=== PATIENT | male | born 1960 | race Caucasian/White ===

== ENCOUNTER 2016-05-17 17:34 | Inpatient (IN) | payer OTHER ==
[~2016-05-17] VITALS: Ht 180.3 cm; Wt 95.3 kg
--- NOTE | ~2016-05-17 | H ---
[facility] [place] [address] HISTORY AND PHYSICAL Name: CARLYNHAYDEE Nelson Room #: 418-P [facility] IN M.R.#: [id number] Admission: 05/17/16 Attend Phys: Tristan Sierra MD Discharge: 05/19/16 Date of : 64 Report #: [id number] THIS REPORT FOR: //name// CC: Jimmy Farris ATTENDING PHYSICIAN: Stacy Farris M.D. PRIMARY CARE PHYSICIAN: Jimmy Ordaz D.O. CHIEF COMPLAINT: Generalized weakness and shortness of breath. HISTORY OF PRESENT ILLNESS: The patient is a 55-year-old male who has been dealing with mid abdominal pain since February of last year. He has been seeing his primary care physician and has been set up with a different specialist to try to figure out what is going on. They initially thought it was his gallbladder, so he had a PIPIDA scan done, which he was told was negative. He then had a CT of his abdomen done in outpatient, which showed lymphadenopathy around his pancreas. He then was evaluated by surgery, Dr. Lorenz. He had a left axillary lymph node biopsy done, but the initial pathology was inconclusive; therefore, the sample was sent to [facility] where it is currently being reviewed. In the meantime, he has also had an EGD done about a week ago with at [place]. He chose to go there because he was told he needed to have this done as soon as possible, not with the only GI doctor. He could get him in not fast. He was told he had no bleeding and no ulcer is noted, but the biopsies from that are pending as well. He is getting frustrated because he has been dealing with daily chronic nausea for the last few months. His weight has gone down about 12 pounds. He has been forcing himself to eat because of this. He has been having right upper quadrant epigastric pain that is worse with eating. Overall, he has been trying to eat in very small amounts multiple times throughout the day. He does have early satiety as well as the nausea, so he is limited on how much he can eat. He has been drinking a lot of water. He denies any black or bloody stools. He did notice small amount of blood on his toilet paper a few days ago after bowel movement, but he has had none since. He reports that his hemoglobin was 8.9 two weeks ago. He does feel like the left axillary lymph node that was just biopsied, has grown in size just in the last few weeks. He came into the ER tonight mainly complaining of generalized weakness and shortness of breath, mainly with exertion. He states with minimally exertion, he has been having some heart racing. He has been overall feeling very fatigued with minimal activity. His hemoglobin today was 7.0 and he is currently receiving a blood transfusion. He denies any history of anemia or prior transfusions. PAST MEDICAL HISTORY: Hyperlipidemia; hypertension, currently off medications and nephrolithiasis. [facility] [address] [place] [address] HISTORY AND PHYSICAL Name: HAYDEE ALCOCER Room #: 418-P DIS IN M.R.#: [id number] Admission: 05/17/16 Attend Phys: Tristan Sierra MD Discharge: 05/19/16 Date of : 64 Report #: [id number] PAST SURGICAL HISTORY: Umbilical hernia repair, lithotripsy times 3 and lymph node biopsy. ALLERGIES: None. HOME MEDICATIONS: Fenofibrate 45 mg daily, simvastatin 20 mg daily, [place] 1-2 tabs q. 4 hours p.r.n., carbamazepine 100 mg daily, Zofran p.r.n., Carafate 1 g q. 4 hours and Protonix 40 mg b.i.d. SOCIAL HISTORY: The patient is a never smoker. Denies any drug use. He drinks alcohol occasionally. Denies any daily use. 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 He lives at home with his and children. Lately, he has had use a cane to ambulate. FAMILY HISTORY: His father had Hodgkin's lymphoma and was treated. He ended up dying in his 70s. His mother is alive with hypertension, hyperlipidemia and she is a 75-year-old. REVIEW OF SYSTEMS: Twelve-point review of systems was reviewed with the patient, otherwise negative unless stated in the HPI. PHYSICAL EXAMINATION: GENERAL: The patient is an alert male, in no acute distress. VITAL SIGNS: Temperature is 36.6, heart rate 84, respirations 16, blood pressure is 128/81 and oxygen 95% on room air. HEENT: PERRLA. Sclerae are nonicteric. Oral mucosa is pink and dry. NECK: Supple. No JVD noted. No cervical lymphadenopathy. CARDIAC: Normal S1 and S2. No murmurs, rubs or gallops. RESPIRATORY: Breath sounds are clear bilaterally. No wheezing or rhonchi. Breathing is nonlabored. ABDOMEN: Flat and nondistended. He does have abdominal tenderness in midepigastric and mid periumbilical area. Bowel sounds are positive. VASCULAR: No edema noted. Pedal pulses are 2+. NEUROLOGICAL: The patient is alert and oriented times 3. Speech is clear. He is answering questions appropriately and following commands. No focal weakness noted. LYMPHATIC: He does have a palpable lymph node in the left axilla with well healed incision from previous biopsy. SKIN: Intact. No rashes or lesions. PSYCHIATRIC: The patient is calm and cooperative but frustrated. LABORATORY DATA AND DIAGNOSTICS: WBC is 3.8, hemoglobin 7.0 and platelets 183. Sodium 141, potassium 3.8, BUN 17, creatinine 1.2 and glucose is 141. LFTs are within normal limits. Albumin is 2.8. Stool for occult blood is negative. [facility] [address] [place] [address] HISTORY AND PHYSICAL Name: CARLYNHAYDEE Omar Room #: 418-P [facility] IN ..#: [id number] Admission: 05/17/16 Attend Phys: Tristan Sierra MD Discharge: 05/19/16 Date of : 64 Report #: [id number] ASSESSMENT AND PLAN: 1. Anemia, etiology is not completely clear at this time. He has been going through recent workup for lymphadenopathy. He may have some sort of underlying lymphoproliferative disease or lymphoma. We will check iron panel and ferritin. Stool for occult blood is negative and he denies any other bleeding. He is being transfused at this time. He may need a hematologic evaluation if his biopsies are negative. 2. Abdominal pain with chronic nausea with abdominal lymphadenopathy. the patient is undergoing outpatient workup. We will try to get the records of his CT of the abdomen and PIPIDA scan, which were done at diagnostic imaging. We will consult gastrointestinal here as he would like to establish care with someone closer. Check a lipase level. Continue with supportive care with antiemetics and pain control. Continue with Carafate and proton pump inhibitor, which he has been taking regularly. 3. Generalized weakness. This is likely due to anemia. There is no focal weakness. 4. Hyperlipidemia. We will hold the statin because of muscle weakness. 5. Deep venous thrombosis prophylaxis, place sequential compression devices. We will continue to follow the patient closely throughout the hospitalization and make changes based on clinical status. <ELECTRONICALLY SIGNED> By: ANAIS Vasquez 05/20/16 [id number] ANAIS Vasquez /nt
--- NOTE | ~2016-05-17 | S ---
[facility] [place] [address] SURGICAL PATH RPT PROCEDURE Name: HAYDEE ALCOCER Room #: 418-P ADM IN M.R.#: [id number] Admission: 05/17/16 Date of : 64 Discharge: Report #: [id number] Path Case #: [id number] PATHOLOGY REPORT COLLECTION DATE: 05/17/2016 RECEIVED DATE: 05/18/2016 SUBMITTING PHYS: Lizbeth Ace M.D. OTHER PHYS: Dr. Stacy Lorenz SPECIMEN(S) RECEIVED: A.Peripheral smear * * * * * * * * * * * * FINAL DIAGNOSIS: Peripheral blood smear: - SEVERE MACROCYTIC ANEMIA AND MILD LEUKOPENIA WITH 14% CIRCULATING BLASTS CONTAINING RARE SULEMA RODS. (SEE COMMENT) COMMENT: Overall, the peripheral blood has severe macrocytic anemia and mild leukopenia. There are 14% circulating blasts that have very rare Sulema rods. The platelet count is within the normal reference range. 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 The findings are very worrisome for an underlying acute myeloid leukemia. Correlation with clinical history and additional laboratory data to include bone marrow findings (if clinically indicated) is recommended. The case was discussed with Dr. Tristan Sierra and Dr. Fanny Hernandez on 05/18/16 at approximately 1:00 p.m. (CLW:mgr; d/t: 05/18/16) PATHOLOGIST: Lizbeth Ace M.D. REPORT ELECTRONICALLY SIGNED BY: Lizbeth Ace M.D. DATE/TIME: 05/18/2016 16:58 * * * * * * * * * * * * MICROSCOPIC DESCRIPTION: CBC Data (05/17/16): WBC 3,800 /uL, RBC 2.00, hemoglobin 7.0 g/dL, hematocrit 20.5%, MCV 102.5 fL, MCH 35.0 pg, MCHC 34.2 g/dL, RDW 17.4%, platelet count 183,000 /uL. Manual white blood cell differential: 27% segs, 1% bands, 41% lymphs, 15% monos, 1% eos, 1% basos, 14% blasts. Peripheral Blood Smear: [address] [address] SURGICAL PATH RPT PROCEDURE Name: HAYDEE ALCOCER Room #: 418-P [facility] IN [facility]#: [id number] Admission: 05/17/16 Date of : 64 Discharge: Report #: [id number] Path Case #: [id number] Cytomorphological examination of the Keenan's stained peripheral blood smear confirms the provided data. Red blood cells show severe macrocytic anemia with mild anisopoikilocytosis. No schistocytes or microspherocytes are seen. White blood cells are mildly decreased in number. Scattered circulating blasts are identified. The blasts are small to medium size with round to focally convoluted nuclear contours, fine nuclear chromatin, and variably conspicuous nucleoli. Rare Sulema rods are identified. Granulocytes are predominantly segmented neutrophils and are without significant dyspoiesis. Lymphocytes are predominantly small, round, and mature appearing with condensed chromatin and scant cytoplasm with admixed large granular lymphocytes. Monocytes are both mature and less mature appearing. Platelets are adequate in number and mainly normal in morphology with rare larger platelets noted. CLINICAL HISTORY: 55 year-old man with anemia, leukopenia, and circulating blasts. Morphologic review of the peripheral blood smear is requested by the [facility] technologist. INITIAL CPT CODE(S): A; [place] Professional services performed by [facility] at [facility] [address], [place] [address] Technical services performed by [facility] at [address] [place] [address], [address], [place] [address]. [facility] [address] [place] [address] PHONE: [phone] DIRECTOR: Elvin Kim M.D. * * * END OF REPORT * * *
[~2016-05-17 17:34] MED LIST: ADULT LOW DOSE81 MG PO; CARAFATE 1 GM TA1 G1 PO; CARBAMAZEPINE100 MG PO; HYDROCODON-ACE1 EAC8 PO; LISINOPRIL-HCT1 EACH PO; LISINOPRIL10 MG PO; LOVAZA1000 MG PO; MOBIC15 MG PO; NORCO 5-325 TA1 EACH PO; PANTOPRAZOLE SO40 M1 PO; PRAVASTATIN SOD20 MG PO; PRILOSEC 20 MG20 MG PO; TRICOR145 MG PO
[2016-05-17 17:37] VITALS: BP 128/81
[2016-05-17 18:12] LABS: HEMATOCRIT 20.5 % (42.0-52.0); MCHC 34.2 % (28.0-37.0); MCV 102.5 fL (80.0-100.0); PLATELET COUNT 183 thou/uL (150-400); RDW 17.4 % (10.5-14.5); WBC 3.8 thou/uL (4.0-11.0)
[2016-05-17 18:15] LABS: MANUAL DIFF YES
[2016-05-17 18:24] LABS: CALCIUM 8.9 mg/dL (8.5-10.1); CREATININE 1.2 mg/dL (0.6-1.3); POTASSIUM 3.8 mmol/L (3.5-5.1)
[2016-05-17 18:30] LABS: ALBUMIN 2.8 g/dL (3.4-5.0); TOTAL BILIRUBIN 0.3 mg/dL (<0.1-1.0); TOTAL PROTEIN 7.8 g/dL (6.4-8.2)
[2016-05-17 19:45] VITALS: BP 117/67
[2016-05-17 20:15] VITALS: BP 121/68
[2016-05-17 22:21] VITALS: BP 111/72; BP 116/68
[2016-05-18] MEDS ORDERED: PROTONIX40 M1 PO (00:15)
[2016-05-18] MEDS ORDERED: ZOFRAN ODT4 MG DISSOLVE (00:16)
[2016-05-18 02:20] VITALS: BP 114/68; BP 114/69
[2016-05-18 04:30] VITALS: BP 108/66
[2016-05-18 07:10] VITALS: BP 115/65
[2016-05-18 07:54] LABS: HEMATOCRIT 25.5 % (42.0-52.0); HEMOGLOBIN 8.9 gm/dL (14.0-18.0); MCHC 34.8 % (28.0-37.0); MCV 97.6 fL (80.0-100.0); RBC 2.61 mil/uL (4.50-6.00); WBC 4.4 thou/uL (4.0-11.0)
[2016-05-18 13:16] LABS: ABSOLUTE NEUTROPHILS 1.1 thou/uL (1.4-8.2)
[2016-05-18 13:17] LABS: NUCLEATED RBCS 3 /100WBC
[2016-05-18 13:20] LABS: BLASTS 14 %
[2016-05-18 13:51] LABS: APTT 25.6 Seconds (24.5-32.8); INR 1.1; PROTIME 11.4 Seconds (9.3-11.4)
[2016-05-18 14:08] LABS: % SATURATION 36 % (15-55); IRON 117 ug/dL (38-169); TIBC 329 ug/dL (250-450); UIBC 212 ug/dL (111-343)
[2016-05-18 15:24] VITALS: BP 119/69
[2016-05-18 20:00] VITALS: BP 125/69
[2016-05-18 21:08] LABS: FOLIC ACID 7.2 ng/mL (>3.0); TSH 3.84 uIU/mL (0.450-4.500)
[2016-05-19 04:00] VITALS: BP 112/62
[2016-05-19 07:35] VITALS: BP 112/68
[2016-05-20 15:07] LABS: A/G RATIO 0.8 (0.7-1.7); ALBUMIN 3.2 g/dL (2.9-4.4); ALPHA 1 0.3 g/dL (0.0-0.4); ALPHA 2 0.8 g/dL (0.4-1.0); BETA 1.4 g/dL (0.7-1.3); GAMMA 1.5 g/dL (0.4-1.8); M-SPIKE Not Observed g/dL (Not Observed)
== END 2016-05-19 11:54 | disposition short-term general hospital (02) | DRG 835 ==
LOC: ER 17:34 → 4E 19:28 → EROBS 19:28 → 4E 19:56
PROVIDERS: Emergency Medicine; Internal Medicine Hematology & Oncology; Nurse Practitioner Acute Care
PROC: 30233N1 Transfusion of Nonautologous Red Blood Cells into Peripheral Vein, Percutaneous Approach (ICD-10-PCS; principal; 2016-05-18)
DX: C93.00 Acute monoblastic/monocytic leukemia, not having achieved remission (principal); E44.1 Mild protein-calorie malnutrition; R10.9 Unspecified abdominal pain; R59.1 Generalized enlarged lymph nodes; M19.90 Unspecified osteoarthritis, unspecified site; D64.9 Anemia, unspecified; I10 Essential (primary) hypertension; E78.5 Hyperlipidemia, unspecified; Z87.442 Personal history of urinary calculi; Z80.7 Family history of other malignant neoplasms of lymphoid, hematopoietic and related tissues; Z82.49 Family history of ischemic heart disease and other diseases of the circulatory system; Z83.49 Family history of other endocrine, nutritional and metabolic diseases; Z79.899 Other long term (current) drug therapy; Z80.3 Family history of malignant neoplasm of breast
CPT/HCPCS: 10183